=== PATIENT | male | born 1965 ===

== ENCOUNTER 2021-06-17 16:09 | Observation (INO) ==
[2021-06-17] MEDS ORDERED: NS 0.9% 1000 ml BAG 1,000 ML IV ONE (16:11)
[2021-06-17 16:58] LABS: ABS Eosinophils 0.1 10^3/ul (0-0.6); ABS Lymphocytes 2.2 10^3/ul (1.0-4.8); ABS Monocytes 0.6 10^3/ul (0-0.8); ABS Neutrophils 4.1 10^3/ul (1.5-7.7); Eosinophil % 0.9 %; Hematocrit 45 % (42-52); Hemoglobin 15.1 g/dL (14.0-18.0); Lymphocyte % 31.6 %; Mean Corpuscular HGB Conc 34 g/dL (31-36); Mean Corpuscular Hemoglobin 31 pg (27-31); Mean Corpuscular Volume 91 fL (80-94); Platelet Count 213 10^3/uL (150-450); Red Blood Count 4.91 10^6 /uL (4.18-5.48); Red Cell Distribution Width 15 % (10-15); White Blood Count 6.9 10^3/uL (3.5-10.8)
[2021-06-17 17:19] LABS: Activated Partial Thrombo Time 34.3 seconds (26.0-38.0); INR 1.1 (0.86-1.15)
[2021-06-17 17:21] LABS: Albumin 4.3 g/dL (3.2-5.2); Albumin/Globulin Ratio 1.5 (1-3); Calcium 9.7 mg/dL (8.6-10.3); Globulin 2.8 g/dL (2-4); HDL Cholesterol 41.6 mg/dL; Total Bilirubin 0.4 mg/dL (0.2-1.0); Total Protein 7.1 g/dL (6.4-8.9); eGFR CKD-EPI 68.7 (>60)
[2021-06-17 17:24] LABS: Potassium 5.2 mmol/L (3.5-5.0)
[2021-06-17] MEDS ORDERED: Dextrose 50% Syringe 50 ml 25 GM/50 ML SYRINGE IV PUSH PRN (19:17)
[2021-06-17] MEDS ORDERED: Enoxaparin 40 MG/0.4 ML SYR SUBCUT SCH (20:00)
[2021-06-17 20:20] LABS: TSH Ultra Thyroid Stim Horm 0.39 mcIU/mL (0.34-5.60)
[2021-06-17 20:22] LABS: Potassium 4.6 mmol/L (3.5-5.0)
[2021-06-18 06:31] LABS: Calcium 9.2 mg/dL (8.6-10.3); Potassium 4.4 mmol/L (3.5-5.0); eGFR CKD-EPI 65.5 (>60)
[2021-06-18 08:37] VITALS: BP 140/77
[2021-06-18] MEDS ORDERED: Aspirin EC 81 mg TAB.EC (enteric coated) PO SCH (09:00)
== END 2021-06-18 13:57 ==
LOC: EDHOLD 16:09 → ED 16:09 → SUATTDRO 19:49 → MEDTELE 22:22
PROVIDERS: ADMIT Nurse Practitioner Family; ATTEND Internal Medicine